=== PATIENT | female | born 1995 | race Caucasian/White ===

== ENCOUNTER 2022-04-28 09:03 | Emergency (ER) | payer OTHER, SELFPAY ==
[2022-04-28 09:10] VITALS: BP 140/99; PULSE 88; RESP 18; TEMP 36.9; O2SAT 98
--- NOTE | 2022-04-28 09:19 | ED.DENTAL ---
HPI - Dental/Oral General Chief complaint: Dental/Oral Stated complaint: Toothache Time Seen by Provider: 04/28/22 09:20 History of Present Illness HPI Narrative: NO FEVER. NO JAW SWELLING. NO NECK SWELLING. NO LIMITATION WITH SPEAKING OR SWALLOWING. HAS A HISTORY OF DENTAL CARIES. HAS NOT SEEN A DENTIST RECENTLY. Related Data Allergies Allergy/AdvReac Type Severity Reaction Status Date / Time amoxicillin Allergy Mild Rash Verified 04/28/22 09:19 Review of Systems Review of Systems: CONSTITUTIONAL: Denies fever, chills, or sweats. EYES: Denies visual changes, redness, or discharge. ENT: Denies rhinorrhea, congestion, sore throat, or otalgia. CONSTITUTIONAL: Denies fever, chills, or sweats. EYES: Denies visual changes, redness, or discharge. ENT: Denies rhinorrhea, congestion, sore throat, or otalgia. CARDIOVASCULAR: Denies chest pain, palpitations, or edema. RESPIRATORY: Denies cough or dyspnea. GASTROINTESTINAL: Denies abdominal pain, nausea, vomiting, or diarrhea. GENITOURINARY: Denies dysuria or hematuria. SKIN: Denies rash or itching. MUSCULOSKELETAL: Denies back pain, joint pain, or myalgia. NEUROLOGIC: Denies headache, numbness, or weakness. PSYCHIATRIC: Denies anxiety or depression. CARDIOVASCULAR: Denies chest pain, palpitations, or edema. RESPIRATORY: Denies cough or dyspnea. GASTROINTESTINAL: Denies abdominal pain, nausea, vomiting, or diarrhea. GENITOURINARY: Denies dysuria or hematuria. SKIN: Denies rash or itching. MUSCULOSKELETAL: Denies back pain, joint pain, or myalgia. NEUROLOGIC: Denies headache, numbness, or weakness. PSYCHIATRIC: Denies anxiety or depression. PMFSH Comments At time of signature, agree with nursing past medical, surgical, social and family history. There is no relevant family history pertinent to the presenting complaint Exam Narrative: GENERAL: Well-appearing, well-nourished, and in no acute distress. HEAD: Normocephalic, atraumatic. EYES: PERRLA and EOMI. ENT: Nares clear, no rhinorrhea or epistaxis. Mucous membranes moist. NO MARYELLEN APICAL SWELLING, TOOTH TENDER TO PALPATION. NO FACIAL SWELLING. NO TRISMUS. ABLE TO OPEN MOUTH FULLY. NO NECK SWELLING OR SAMEERA'S ANGINA. NO ABSCESS TO BE DRAINED. no drooling, trismus, facial asymmetry or significant neck swelling NECK: Supple. CHEST: Clear to auscultation. No respiratory distress. HEART: Regular rate and rhythm. No murmur heard. Normal peripheral pulses. ABDOMEN: Soft, nontender, nondistended, normal active bowel sounds. EXTREMITIES: Normal range of motion. No edema. SKIN: Warm, dry, no rash. NEURO: No focal deficits. Alert and oriented x3. Gerry Coma Scale Eye Opening: Spontaneous 4 Barnard Coma Scale Motor: Obeys Commands 6 Barnard Coma Scale Verbal: Oriented 5 Gerry Coma Scale Total 15 Course Course Level of Care: Express Care Visit Vital Signs Vital signs: Vital Signs Temperature 36.9 C 04/28/22 09:10 Pulse Rate 88 04/28/22 09:10 Respiratory Rate 18 04/28/22 09:10 Blood Pressure 140/99 H 04/28/22 09:10 Pulse Oximetry 98 04/28/22 09:10 Oxygen Delivery Room Air 04/28/22 09:10 Temperature 36.9 C 04/28/22 09:10 Pulse Rate 88 04/28/22 09:10 Respiratory Rate 18 04/28/22 09:10 Blood Pressure 140/99 H 04/28/22 09:10 Pulse Oximetry 98 04/28/22 09:10 Oxygen Delivery Room Air 04/28/22 09:10 Please LC schedule a followup visit with your personal physician for further evaluation and treatment. Including recheck and discussion of your blood pressure. If your symptoms persist, change or worsen significantly before you can contact your personal physician then please, without delay, go to the emergency department for further evaluation MDM - Dental/Oral Differential Diagnosis Differential diagnosis: Likely gingival abscess, dental caries, toothache, dental abscess, fracture of tooth and aphthous ulcer Discharge Plan Discharge Clinical Impression: Dental caries, Toothache, Dental
== END 2022-04-28 09:30 | disposition home or self-care (01) ==
PROVIDERS: Emergency Provider Nurse Practitioner Family; PCP Nurse Practitioner Family
DX: K02.9 Dental caries, unspecified (principal); K08.89 Other specified disorders of teeth and supporting structures; K04.7 Periapical abscess without sinus
CPT/HCPCS: 99213; G0463

== ENCOUNTER 2022-05-31 08:12 | Emergency (ER) | payer OTHER, SELFPAY ==
--- NOTE | 2022-05-31 08:16 | ED.URI ---
HPI - URI/Sore Throat General Chief Complaint: Upper Respiratory Infection Stated Complaint: congestion sore throat Time Seen by Provider: 05/31/22 08:30 Source: patient Mode of arrival: ambulatory Limitations: no limitations History of Present Illness HPI Narrative: Maryam is a 26-year-old female patient presenting to the clinic today with complaints of congestion and sore throat since last night. She reports her son is currently being treated for strep pharyngitis. She denies any fever or chills. MD elicited complaint: sore throat and nasal congestion Related Data Home Medications Medication Instructions Recorded Confirmed levonorgestrel 21 mcg/24 hours (8 1 device intrauterine ONCE 05/31/22 05/31/22 yrs) 52 mg intrauterine device (Mirena) Allergies Allergy/AdvReac Type Severity Reaction Status Date / Time amoxicillin Allergy Mild Rash Verified 05/31/22 08:31 Review of Systems Review of Systems: Pertinent positives per HPI. Patient denies any fever, chills, rash, headache, visual changes, dizziness, shortness of breath, chest pain, palpitations, nausea, vomiting, diarrhea, constipation, abdominal pain, or any urinary issues. PMFSH Comments At the time of my signature, I reviewed and agree with the nursing past medical, surgical, social, and family history. There is no relevant family history pertinent to the patient complaint. Exam Narrative: General: Well-developed, well nourished, in no apparent distress Head: Normocephalic, atraumatic Eyes: Pupils equally round and reactive to light bilaterally, EOM intact, sclera and conjunctive clear, no discharge, lids normal Ears: TMs intact and dull, ear canals clear, no drainage, grossly hearing normal. Nose: Nares patent, clear nasal discharge, moderate inflammation, no sinus tenderness. Mouth: Oral pharynx without lesions or masses, good dentition, MMM. Oropharynx red, postnasal drip Neck: Supple, trachea midline, mild enlargement of anterior cervical nodes, no thyroid masses or goiter palpable. Cardio: Regular rate and rhythm, s1 and s2 normal, no murmur appreciated. Resp: Clear to auscultation bilaterally, no rhonchi, rales, wheezing or rubs Course Course Emergency Course: Portions of this record may have been created with voice recognition software. Level of Care: Express Care Visit Vital Signs Vital signs: Vital Signs Temperature 36.8 C 05/31/22 08:25 Pulse Rate 80 05/31/22 08:25 Respiratory Rate 16 05/31/22 08:25 Blood Pressure 133/87 05/31/22 08:25 Pulse Oximetry 99 05/31/22 08:25 Oxygen Delivery Room Air 05/31/22 08:25 Temperature 36.8 C 05/31/22 08:25 Pulse Rate 80 05/31/22 08:25 Respiratory Rate 16 05/31/22 08:25 Blood Pressure 133/87 05/31/22 08:25 Pulse Oximetry 99 05/31/22 08:25 Oxygen Delivery Room Air 05/31/22 08:25 Vital signs reviewed MDM - URI/Sore Throat MDM Narrative Medical decision making narrative: At the time of visit patient is resting comfortably on the exam table. Strep test was negative in the clinic today. I suspect patient has URI/pharyngitis/viral syndrome. Supportive measures were discussed with the patient she voiced understanding discharge instructions and agrees to treatment plan. We will send strep for culture Differential Diagnosis Differential diagnosis: Likely upper respiratory infection, otitis media, sinusitis, viral infection, bronchitis, influenza, pharyngitis and other (COVID) Lab Data Labs: Strep Screen Presumptive Negative *(Reference Range: Negative)* Discharge Plan Discharge Clinical Impression: Upper respiratory infection, Pharyngitis, Viral infection Patient Disposition: Home, Self-Care Condition: Stable Instructions: Antibiotic Form, Pharyngitis (ED), Upper Respiratory Infection (ED), Viral Syndrome (ED) Additional Instructions: Strep screen was negative in the cli
[2022-05-31 08:25] VITALS: BP 133/87; PULSE 80; RESP 16; TEMP 36.8; O2SAT 99
== END 2022-05-31 08:45 | disposition home or self-care (01) ==
PROVIDERS: Emergency Provider Nurse Practitioner Family; PCP Nurse Practitioner Family
DX: J02.8 Acute pharyngitis due to other specified organisms (principal)
CPT/HCPCS: 87081; 87880; 99213; G0463

== ENCOUNTER 2022-08-01 10:06 | Emergency (ER) | payer OTHER, SELFPAY ==
--- NOTE | 2022-08-01 10:14 | ED.NAVMDI ---
HPI - Nausea/Vomiting/Diarrhea General Chief complaint: Nausea/Vomiting/Diarrhea Stated complaint: nausea/vomiting Time Seen by Provider: 08/01/22 10:14 Source: patient and RN notes reviewed History of Present Illness HPI Narrative: Patient is a 26-year-old female who presents to urgent care with complaints of 1 episode of vomiting this morning at 9:00 a.m. and 1 episode of loose stools. Mother states her son at started vomiting last night around 4:00 a.m. and has vomited approximately 5 or 6 times since then. States that her last meal was [employer] last night. Denies any fevers. Patient has not taken anything [id number] for her symptoms. Currently denies any abdominal discomfort at rest. No acute distress noted. Patient aware of the plan of care. Some parts of this dictation were generated by voice recognition software and may contain typographical and/or grammatical inaccuracies. Related Data Home Medications Medication Instructions Recorded Confirmed levonorgestrel 21 mcg/24 hours (8 1 device intrauterine ONCE 05/31/22 05/31/22 yrs) 52 mg intrauterine device (Mirena) Allergies Allergy/AdvReac Type Severity Reaction Status Date / Time amoxicillin Allergy Mild Rash Verified 05/31/22 08:31 Review of Systems Review of Systems: CONSTITUTIONAL: Denies fever, chills, or sweats. EYES: Denies visual changes, redness, or discharge. ENT: Denies rhinorrhea, congestion, sore throat, or otalgia. CARDIOVASCULAR: Denies chest pain, palpitations, or edema. RESPIRATORY: Denies cough or dyspnea. GASTROINTESTINAL: Reports of nausea, vomiting and 1 loose stool GENITOURINARY: Denies dysuria or hematuria. SKIN: Denies rash or itching. MUSCULOSKELETAL: Denies back pain, joint pain, or myalgia. NEUROLOGIC: Denies headache, numbness, or weakness. All other systems reviewed are negative, except as documented in HPI. PMFSH Comments At the time of my signature, I reviewed and agree with the nursing past medical, surgical, social, and family history. There is no relevant family history pertinent to the patient complaint. Exam Narrative: GENERAL: This is a well-nourished, well-developed patient, in no apparent distress. HEAD: normocephalic, atraumatic. EYES: PERRL. Sclera clear/white. Vision is grossly intact. EARS: External ears normal NOSE: External nose normal with no obvious nasal discharge, nares without redness, no rhinorrhea. THROAT: Mucous membranes moist NECK: Neck supple, RESPIRATORY: Clear to auscultation. Breath sounds equal bilaterally. No wheezes, rales, or rhonchi. GASTROINTESTINAL: Abdomen soft, mild diffuse tenderness, nondistended. Bowel sounds are hyper active. SKIN: warm, intact with no suspicious lesions or rash, good texture and turgor. NEURO: awake, alert, and oriented to person, place and time. There were no obvious focal neurologic abnormalities. EXTREMITIES: No clubbing, cyanosis, or edema. Course Course Level of Care: Express Care Visit Vital Signs Vital signs: Vital Signs Temperature 98.4 F 08/01/22 10:16 Pulse Rate 97 08/01/22 10:16 Respiratory Rate 20 08/01/22 10:16 Blood Pressure 111/69 08/01/22 10:16 Pulse Oximetry 100 08/01/22 10:16 Oxygen Delivery Room Air 08/01/22 10:16 Temperature 98.4 F 08/01/22 10:16 Pulse Rate 97 08/01/22 10:16 Respiratory Rate 20 08/01/22 10:16 Blood Pressure 111/69 08/01/22 10:16 Pulse Oximetry 100 08/01/22 10:16 Oxygen Delivery Room Air 08/01/22 10:16 Reviewed MDM - Nausea/Vomiting/Diarrhea MDM Narrative Medical decision making narrative: Advised patient to use the Zofran as needed for nausea. Be sure to increase fluid intake to compact dehydration. You may use Pepto-Bismol [id number] for upset stomach/diarrhea. Symptoms are it highly likely to a virus. It may travel throughout the home. Be sure to clean it surfaces and practice good hand hygiene. Symptoms can last for 3-5 days. Follow-up with your Gabriela
[2022-08-01 10:16] VITALS: BP 111/69; PULSE 97; RESP 20; TEMP 36.9; O2SAT 100
== END 2022-08-01 10:52 | disposition home or self-care (01) ==
PROVIDERS: Emergency Provider Nurse Practitioner Family; PCP Nurse Practitioner Family
DX: A08.11 Acute gastroenteropathy due to Norwalk agent (principal)
CPT/HCPCS: 99213; G0463

== ENCOUNTER 2022-10-27 17:46 | Emergency (ER) | payer OTHER, SELFPAY ==
[2022-10-27 17:54] VITALS: BP 145/98; PULSE 79; RESP 16; TEMP 36.7; O2SAT 100
--- NOTE | 2022-10-27 18:41 | ED.GENADULT ---
HPI - General Adult General Chief complaint: Dental/Oral Stated complaint: Toothache Source: patient Mode of arrival: ambulatory Limitations: no limitations History of Present Illness HPI narrative: Patient presents for evaluation of right upper dental pain. Symptom onset approximately 2 weeks ago with pain worsened last night. She rates her pain 8/10 in severity. She describes the pain is throbbing without radiation. She has been taking Tylenol and ibuprofen for pain without considerable improvement thereafter. No fever, chills, nausea, vomiting. She is not diabetic. She does use an electronic cigarette. Related Data Allergies Allergy/AdvReac Type Severity Reaction Status Date / Time amoxicillin Allergy Mild Rash Verified 10/27/22 17:59 Review of Systems Review of Systems: CONSTITUTIONAL: Denies fever, chills, or sweats. EYES: Denies visual changes, redness, or discharge. ENT: Reports right upper dental pain. Denies rhinorrhea, congestion, sore throat, or otalgia. CARDIOVASCULAR: Denies chest pain, palpitations, or edema. RESPIRATORY: Denies cough or dyspnea. GASTROINTESTINAL: Denies abdominal pain, nausea, vomiting, or diarrhea. GENITOURINARY: Denies dysuria or hematuria. SKIN: Denies rash or itching. MUSCULOSKELETAL: Denies back pain, joint pain, or myalgia. NEUROLOGIC: Denies headache, numbness, dizziness, or weakness. PSYCHIATRIC: Denies anxiety or depression. [facility] Past Medical History Medical History Tooth fracture Surgical History Surgical History History of knee surgery Family History Family History Mother Family history non-contributory Social History Social History (Updated 10/27/22 @ 18:43 by Alexander Vazquez [facility], ) Smoking status: Current every day smoker Tobacco type: e-cigarettes/vaping Living arrangements: with family Gender identity (if verbalized by the patient): Female Spiritual care concerns: No Exam Narrative: GENERAL: Well-appearing, well-nourished, and in no acute distress. HEAD: Normocephalic, atraumatic. EYES: PERRLA and EOMI. ENT: Nares clear, no rhinorrhea or epistaxis. Mucous membranes moist. Tooth #2 and tooth #3 are fractured. There is no visible or palpable abscess. Oropharynx without tonsillar hypertrophy exudate or other lesions. Bilateral TMs pearly hernandez nonbulging NECK: Supple. No adenopathy or masses. No carotid bruits or JVD CHEST: Clear to auscultation. No respiratory distress. No wheezes rales or rhonchi HEART: Regular rate and rhythm. No murmur heard. Normal peripheral pulses. ABDOMEN: Soft, nontender, nondistended, normal active bowel sounds. EXTREMITIES: Normal range of motion. No edema. SKIN: Warm, dry, no rash. NEURO: No focal deficits. Alert and oriented x3. PSYCH: Normal mood and affect. Course Course Emergency Course: This is a 27-year-old female who presented for evaluation of right upper dental pain. She has several fractured teeth without a visible or palpable abscess. Will discharge with clindamcyin and tramadol. Follow up with dentist and PCP. Go to ER for worsening symptoms. Pt in agreement with plan of care. Level of Care: Express Care Visit Vital Signs Vital signs: Vital Signs Temperature 36.7 C 10/27/22 17:54 Pulse Rate 79 10/27/22 17:54 Respiratory Rate 16 10/27/22 17:54 Blood Pressure 145/98 H 10/27/22 17:54 Pulse Oximetry 100 10/27/22 17:54 Oxygen Delivery Room Air 10/27/22 17:54 Temperature 36.7 C 10/27/22 17:54 Pulse Rate 79 10/27/22 17:54 Respiratory Rate 16 10/27/22 17:54 Blood Pressure 145/98 H 10/27/22 17:54 Pulse Oximetry 100 10/27/22 17:54 Oxygen Delivery Room Air 10/27/22 17:54 Medical Decision Making Vital Signs Vital Signs: Vital Signs Temperature 36.7 C
== END 2022-10-27 18:10 | disposition home or self-care (01) ==
PROVIDERS: Emergency Provider Nurse Practitioner; PCP Nurse Practitioner Family
DX: S02.5XXA Fracture of tooth (traumatic), initial encounter for closed fracture (principal); X58.XXXA Exposure to other specified factors, initial encounter; F17.290 Nicotine dependence, other tobacco product, uncomplicated
CPT/HCPCS: 99213; G0463

== ENCOUNTER 2022-12-27 10:21 | Emergency (ER) | payer OTHER, SELFPAY ==
[2022-12-27 10:30] VITALS: BP 135/83; PULSE 92; RESP 18; TEMP 36.6; O2SAT 98
--- NOTE | 2022-12-27 11:15 | ED.GENADULT ---
HPI - General Adult General Chief complaint: Nausea/Vomiting/Diarrhea Stated complaint: Fever/Vomiting Time Seen by Provider: 12/27/22 11:16 Source: patient, RN notes reviewed and old records reviewed Mode of arrival: ambulatory Limitations: no limitations History of Present Illness HPI narrative: 27-year-old female accompanied by children presents to Express Care with complaints of nausea and vomiting X3, having headache during the night with temperature at 4:30 a.m. of 101F. Patient reports that she took Tylenol for her discomfort. Patient reports that she has not had flu or COVID vaccinations and she works at daycare. Patient reports that she is unsure if she has been exposed to any ill contacts.Patient reports that she called off work and needs work note. MD complaint: headache, nausea and vomiting Onset (ago): day(s) (1) Treatments prior to arrival: other (Tylenol) Related Data Allergies Allergy/AdvReac Type Severity Reaction Status Date / Time amoxicillin Allergy Mild Rash Verified 12/27/22 10:40 Review of Systems Review of Systems: CONSTITUTIONAL: Reports fever, no chills, or sweats. EYES: Denies visual changes, redness, or discharge. ENT: Denies rhinorrhea, congestion, denies sore throat, or otalgia. CARDIOVASCULAR: Denies chest pain, palpitations, or edema. RESPIRATORY: Denies cough or dyspnea. GASTROINTESTINAL: Denies abdominal pain,positive for nausea, vomiting, no diarrhea. GENITOURINARY: Denies dysuria or hematuria. SKIN: Denies rash or itching. MUSCULOSKELETAL: Denies back pain, joint pain, or myalgia. NEUROLOGIC: Reports headache,no numbness, or weakness. PSYCHIATRIC: Denies anxiety or depression. All systems reviewed & are unremarkable except as noted in HPI and below [facility] Past Medical History Medical History Tooth fracture Surgical History Surgical History History of knee surgery Family History Family History Mother Family history non-contributory Social History Social History (Updated 10/27/22 @ 18:43 by JODI Castrejon, SHARI) Smoking status: Current every day smoker Tobacco type: e-cigarettes/vaping Living arrangements: with family Gender identity (if verbalized by the patient): Female Spiritual care concerns: No Comments At time of signature, agree with nursing past medical, surgical, social and family history. There is no relevant family history pertinent to the presenting complaint Exam Narrative: GENERAL: Well-appearing, well-nourished, and in no acute distress. HEAD: Normocephalic, atraumatic. EYES: PERRLA and EOMI. ENT: Nares clear, no rhinorrhea or epistaxis. Mucous membranes moist.TM's normal, throat pink with no swelling NECK: Supple.no lymphadenopathy CHEST: Clear to auscultation. No respiratory distress.SAO2 98% on room air HEART: Regular rate and rhythm. No murmur heard. Normal peripheral pulses. ABDOMEN: Soft, nontender to palpation, nondistended, normal active bowel sounds. 3 episodes of nausea and vomiting EXTREMITIES: Normal range of motion. No edema. SKIN: Warm, dry, no rash. NEURO: No focal deficits. Alert and oriented x3. Course Course Emergency Course: Patient is aware of diagnosis, understands and agrees to treatment plan.? Anticipatory guidance given.? Patient agrees to follow-up as directed and is aware of reasons to seek care at the emergency department. Portions of this record may have been created with voice recognition software Level of Care: Express Care Visit Vital Signs Vital signs: Vital Signs Temperature 36.6 C 12/27/22 10:30 Pulse Rate 92 12/27/22 10:30 Respiratory Rate 18 12/27/22 10:30 Blood Pressure 135/83 12/27/22 10:30 Pulse Oximetry 98 12/27/22 10:30 Oxygen Delivery Room Air 12/27/22 10:30 Temperature 36.6 C
== END 2022-12-27 11:55 | disposition home or self-care (01) ==
PROVIDERS: Emergency Provider Registered Nurse; PCP Nurse Practitioner Family
DX: R11.2 Nausea with vomiting, unspecified (principal); R51.9 Headache, unspecified; Z20.822 Contact with and (suspected) exposure to COVID-19; F17.290 Nicotine dependence, other tobacco product, uncomplicated
CPT/HCPCS: 87426; 87804; 99213; C9803; G0463

== ENCOUNTER 2023-01-08 15:00 | Emergency (ER) | payer OTHER, SELFPAY ==
[2023-01-08 15:05] VITALS: BP 154/84; PULSE 80; RESP 16; TEMP 36.9; O2SAT 99
--- NOTE | 2023-01-08 15:11 | ED.URI ---
HPI - URI/Sore Throat General Chief Complaint: Upper Respiratory Infection Stated Complaint: Headache/Cough/Sore Throat Time Seen by Provider: 01/08/23 15:12 Source: patient and RN notes reviewed Mode of arrival: ambulatory Limitations: no limitations History of Present Illness HPI Narrative: 27-year-old female presents with concern for cough, nasal congestion, mild sore throat, headache. She reports exposure to COVID 2 days ago. Reports his symptoms started 2 days ago. Reports she works at a daycare. Reports she has been taking Tylenol. MD elicited complaint: cough Related Data Allergies Allergy/AdvReac Type Severity Reaction Status Date / Time amoxicillin Allergy Mild Rash Verified 01/08/23 15:16 Review of Systems Review of Systems: CONSTITUTIONAL: Denies malaise, chills, sweats, or fever. EYES: Denies visual changes, redness, or discharge. ENT: Reports rhinorrhea, congestion, mild sore throat. Denies sinus pain, otalgia CARDIOVASCULAR: Denies chest pain, palpitations, or edema. RESPIRATORY: Reports cough. Denies dyspnea. GASTROINTESTINAL: Denies abdominal pain, nausea, vomiting, diarrhea SKIN: Denies rash or itching. MUSCULOSKELETAL: Denies myalgia. NEUROLOGIC: Reports headache. All systems reviewed & are unremarkable except as noted in HPI and below PMFSH Past Medical History Medical History Tooth fracture Surgical History Surgical History History of knee surgery Family History Family History Mother Family history non-contributory Social History Social History (Updated 10/27/22 @ 18:43 by DANN CatsrejonP, ) Smoking status: Current every day smoker Tobacco type: e-cigarettes/vaping Living arrangements: with family Gender identity (if verbalized by the patient): Female Spiritual care concerns: No Comments At time of signature, agree with nursing past medical, surgical, social and family history. There is no relevant family history pertinent to the presenting complaint Exam Narrative: GENERAL: Well-appearing, well-nourished, and in no acute distress. HEAD: Normocephalic EYES: PERRLA, conjunctivae clear ENT: Nares clear, turbinates edematous and erythematous, clear discharge. Mucous membranes moist. TM pearly hernandez with dull light reflex bilaterally; no tragal tenderness. Oropharynx not erythematous without lesions. Tonsils not enlarged and without exudate, no drooling, no hoarseness, no trismus, uvula midline. NECK: Supple. No lymphadenopathy CHEST: Clear to auscultation, breath sounds equal. No wheezing, rhonchi, rales, or stridor. No respiratory distress, speaks in full sentences. HEART: Regular rate and rhythm. No murmur heard. SKIN: Warm, dry, no rash. NEURO: Alert and oriented x3. PSYCH: Normal mood and affect Course Course Emergency Course: Patient is aware of diagnosis, understands and agrees to treatment plan. Anticipatory guidance given. Patient agrees to follow-up as directed and is aware of reasons to seek care at the emergency department. Portions of this record may have been created with voice recognition software Level of Care: Express Care Visit Vital Signs Vital signs: Vital Signs Temperature 98.4 F 01/08/23 15:05 Pulse Rate 80 01/08/23 15:05 Respiratory Rate 16 01/08/23 15:05 Blood Pressure 154/84 H 01/08/23 15:05 Pulse Oximetry 99 01/08/23 15:05 Oxygen Delivery Room Air 01/08/23 15:05 Temperature 98.4 F 01/08/23 15:05 Pulse Rate 80 01/08/23 15:05 Respiratory Rate 16 01/08/23 15:05 Blood Pressure 154/84 H 01/08/23 15:05 Pulse Oximetry 99 01/08/23 15:05 Oxygen Delivery Room Air 01/08/23 15:05 Reviewed. MDM - URI/Sore Throat MDM Narrative Medical decision making narrative: Differential diagnosis considered: Worrell viru
== END 2023-01-08 15:35 | disposition home or self-care (01) ==
PROVIDERS: Emergency Provider Nurse Practitioner; PCP Nurse Practitioner Family
DX: J06.9 Acute upper respiratory infection, unspecified (principal); Z20.822 Contact with and (suspected) exposure to COVID-19; F17.290 Nicotine dependence, other tobacco product, uncomplicated
CPT/HCPCS: 87081; 87426; 87880; 99213; C9803; G0463

== ENCOUNTER 2025-03-26 08:58 | Emergency (ER) | payer OTHER, SELFPAY ==
[2025-03-26 09:00] VITALS: BP 145/88; PULSE 84; RESP 16; TEMP 36.3; O2SAT 99
--- OUTSIDE RECORDS SUMMARY | 2025-03-26 09:04 | XMS_ITS | Encounter Summary ---
Author Organization [facility] Address [address] [place] [address] Phone Care Team Providers Care Car Dispatcher Name Role Phone Keating, Kateherson VILLELA CNP Primary Care Provider [phone] Encounter Details Date Type Department Care Team (Late st Contact Info) Description 06/18/2023 Lab Requisition [facility] [address] [place] [id number] Vadim Winslow, PAC [address] [place] [address] Encounter for pre-employment examination Social History Tobacco Use Types Packs/Day Years Used Date Smoking Tobacco: Former Cigarettes 0 Q uit: 2020 Smokeless Tobacco: Never Comments No Sex and Gender Information Value Date Recorded Sex Assigned at Not on file Legal Sex Female 9:14 PM CDT Gender Identity Not on file Sexual Orientation Not on file documented as of this encounter Plan of Treatment Not on file documented as of this encounter Procedures Procedure Name Priority Date/Time Associated Diagnosis Comments QUANTIFERON-TB GOLD PLUS Routine 06/18/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 Encounter for pre-employment examination documented in this encounter Results * QUANTIFERON-TB GOLD PLUS (06/18/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) NIL CONTROL 0.07 <8.01 IU/mL 06/20/2023 10:55 AM [facility] TB ANTIGEN 1 0.01 <0.35 IU/mL 06/20/2023 10:55 AM [facility] TB ANTIGEN 2 0.00 <0.35 IU/mL 06/20/2023 10:55 AM [facility] MITOGEN CONTROL 9.93 >0.49 IU/mL 06/20/19 10:55 AM [facility] INTEPRETATION TB NEGATIVE NEGATIVE, NEGATIVE (TB antigen response less than 25% of internal negative control value) 06/20/2023 10:55 AM [facility] Comment:No immune response t o Mycobacterium tuberculosis antigens was noted. M. tuberculosis infection unlikely. Blood No Phlebotomy Charged / Unknown 06/18/2023 10:10 AM [facility] 06/18/2023 12:08 PM [facility] Narrative [facility] - 06/20/2023 10:55 AM [facility] A POSITIVE QUANTIFERON-TB GOLD PLUS RESULT SHOULD NOT BE THE SOLE OR DEFINITIVE BASIS FOR DETERMINING INFECTION WITH M.TUBERCULOSIS. Diagnosing or excluding tuberculosis disease, and assessing the probability of LTBI, requires a combination of epidemiological, historical, medical and diagnostic findings (e.g., acid fast bacilli (AFB) smear and culture, chest xray) that should be taken into account when interpreting QFT-Plus results. Furthermore, the magnitude of the measured gamma interferon level cannot be correlated to stage or degree of infection, level of immune responsiveness, or likelihood for progression to active disease. The Nil control adjusts for background (e.g., elevated levels of circulating gamma interferon or presence of heterophile antibodies). The Mitogen control serves as an internal positive control and verifies each specimen tested can produce a gamma interferon response. Low mitogen may occur with insufficient lymphocytes, reduced lymphocyte activity due to improper specimen handling, filling/mixing of the mitogen tube, or inability of the patient's lymphocytes to generate gamma interferon. Infection with other Mycobacteria, including M. kansasii, M. szulgai, and M. marinum, may cause false positive results. A negative QuantiFERON-TB Gold Plus result does not preclude the possibility of M. tuberculosis infection or tuberculosis disease: false negative results can be due to incorrect blood sample collection/ improper handling of the specimen, stage of infection (e.g., specimen obtained prior to the development of cellular immune response), co-morbid conditions which affect immune function, or other individual immunological factors. The minimum number of lymphocytes required for a reliable test has not been established and may also be variable. Diagnostic testing for Mycobacterium tuberculosis using Interferon Gamma Release Assays should follow applicable published guidelines, including when testing in populations such as children, women, and HIV-infected or otherwise immunocompromised individuals. https://www.cdc.gov/tb/publications/guidelines/testing.htm us Vadim Winslow PAC IMMUNOLOGY ORDERABLES Final Result [facility] [address] [place] [address], documented in this encounter Visit Diagnoses Diagnosis Encounter for pre-employment examination Health examination of defined subpopulation documented in this encounter Care Teams Car Dispatcher Relationship Specialty Start Date End Date Kate Keating APRN, CNP PCP - General Family Medicine 01/04/21 documented as of this encounter
--- OUTSIDE RECORDS SUMMARY | 2025-03-26 09:04 | XMS_ITS | Clinical Summary ---
Author Organization [facility] Address [address] [place] [address] Care Team Providers Care Linotype Mechanic Name Role Phone Adrien Tenorio MD Unavailable [phone] Kate Keating NP Primary Care Provider + [phone] Allergies Active Allergy Reactions Criticality Noted Date Comments Amoxicillin Rash Medium 04/22/2020 Medications acetaminophen (TYLENOL) 500 mg tablet Take 500 mg by mouth every 6 (six) hours as needed for pain Active naproxen (NAPROSYN) 375 mg tablet Take 1 tablet (375 mg total) by mouth 2 (two) times a day with meals P.r.n. pain and swelling. Collaborating physician Sunny Gould MD 20 tablet 1 Active ibuprofen (ADVIL,MOTRIN) 600 mg tablet Take 1 tablet (600 mg total) by mouth 4 (four) times a day as needed for pain With food 15 tablet 2 Active Active Problems Problem Noted Date Diagnosed Date Sprain of left knee 12/21/2020 Right corneal abrasion 06/18/2019 Acute conjunctivitis of right eye 06/18/2019 Normal pelvic exam 02/06/2019 Vaginal foreign body, initial encounter 02/07/20 19 Encounter to obtain excuse from work 11/30/2018 Closed nondisplaced fracture of fifth right meta tarsal bone 11/25/2018 Paronychia of left index finger 09/07/2018 Immunizations Immunization Administration Dates Next Due Influenza, Quadrivalent, Spl it, Preservative Free, Intramuscular 06/10/2018 Tdap 06/10/2018,08/29/2014 Surgical History Surgery Date Site/Laterality Comments TONSILLECTOMY AND ADENOIDECTOMY Medical History Medical History Date Comments Herpes HSV1 Abnormal Pap smear of cervix Social History Tobacco Use Types Packs/Day Years Used Date Smoking Tobacco: Former Cigarettes Smokeless Tobacco: Never Alcohol Use Standard Drinks/Week Comments Not Currently 0 (1 standard drink = 0.6 oz pure alcohol) pt states she drinks a pint or two daily Personal Safety Answer Date Recorded Have you ever been in or are you currently in a harmful physical or emotional relationship or is someone making you feel afraid or unsafe? 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 Last Filed Vital Signs Vital Sign Reading Time Taken Comments Blood Pressure 140/93 10/03/2023 8:56 AM CDT Pulse 94 10/03/2023 8:56 AM CDT Temperature 36.7 C (98 F) 10/03/2023 8:56 AM CDT Respiratory Rate 15 10/03/2023 8:56 AM CDT Oxygen Saturation 99% 10/03/2023 8:56 AM CDT Inhaled Oxygen Concentration - - Weight 72.6 kg (160 lb) 10/03/2023 8:56 AM CDT Height 170.2 cm (5' 7) 10/03/2023 8:56 AM CDT Body Mass Index 25.06 10/03/2023 8:56 AM CDT Plan of Treatment Health Maintenance Due Date Last Done Comments Cervical Cancer Screening 1996 Depression Screening 1996 Hepatitis C Screening 1996 Varicella Vaccines (1 of 2 - 13+ 2-dose series) 2009 Regular Well Visit/Exam 18-64 2014 HPV Vaccines (1 - 3-dose SCDM series) 09/17/2023 Influenza Vaccine (#1) 2024 06/10/2018 DTaP/Tdap/Td Vaccine (8 - Td or Tdap) 06/10/2028 06/10/2018, 08/29/2014, 02/02/2011, Additional history exists Hepatitis B Screening Completed 04/07/1997 , 1996, 1996 Pneumococcal vaccine <65 Aged Out No longer eligible based on patient's age to complete this topic Insurance [facility] [employer] BETTER [facility] Advance Directives For more information, please contact: [phone] * Full Code (Latest Code Status on File) Date Activated Date Inactivated Comments 06/08/2018 7:21 PM 06/10/2018 11:37 PM * Full Code Date Activated Date Inactivated Comments 06/08/2018 7:02 AM 06/08/2018 7:21 PM Full CPR in case of cardiopulmonary arrest Care Teams Linotype Mechanic Relationship Specialty Start Date End Date Kate Keating NP [address] [place] [address] [place] [id number] PCP - General 09/24/19 Adrien Tenorio MD Consulting Physician Obstetrics and Gynecology 06/10/19
--- OUTSIDE RECORDS SUMMARY | 2025-03-26 09:04 | XMS_ITS | Clinical Summary ---
Author Organization [facility] Address [address] [place] [address] Phone Care Team Providers Care Rubber Stamps And Dies Supervisor Name Role Phone Keating, Kateherson VILLELA CNP Primary Care Provider [phone] Allergies Active Allergy Reactions Criticality Noted Date Comments Amoxicillin Rash Medium 08/09/2021 Medications MULTIPLE VITAMIN PO Take 1 Tablet by mouth daily. Active HYDROcodone-claudia taminophen (NORCO) 5-325 MG TabletIndicatio ns:Dental caries Take 1 Tablet by mouth every 6 hours as needed for Moderate or more severe pain. 10 Tablet 07/30/2023 Active traMADol (ULTRAM) 50 MG TabletIndicatio ns:Dental infection Take 1 Tablet by mouth every 6 hours as needed for Mild or more severe pain. 12 Tablet 09/07/2024 Active Active Problems No known active problems Family History Medical History Relation Name Comments Chronic Obstructive Pulmonary Disease Father Heart Attack Mother Relation Name Status Comments Father Mother Alive Social History Tobacco Use Types Packs/Day Years Used Date Smoking Tobacco: Former Cigarettes 0 Q uit: 2020 Smokeless Tobacco: Never Comments Unknown Sex and Gender Information Value Date Recorded Sex Assigned at Not on file Legal Sex Female 9:14 PM CDT Gender Identity Not on file Sexual Orientation Not on file Last Filed Vital Signs Vital Sign Reading Time Taken Comments Blood Pressure 151/91 09/07/2024 4:33 PM CDT Pulse 72 09/07/2024 4:33 PM CDT Temperature 36.4 C (97.6 F) 09/07/2024 4:33 PM CDT Respiratory Rate 16 09/07/2024 4:33 PM CDT Oxygen Saturation 100% 09/07/2024 4:33 PM CDT Inhaled Oxygen Concentration - - Weight 77.1 kg (170 lb) 09/07/2024 4:33 PM CDT Height 170.2 cm (5' 7) 09/07/2024 4:33 PM CDT Body Mass Index 26.63 09/07/2024 4:33 PM CDT Plan of Treatment Health Maintenance Due Date Last Done Comments Hepatitis C Virus (HCV) Screening 1996 Varicella Immunization (1 of 2 - 13+ 2-dose series) 2009 Pap Smear 2017 Human Papillomavirus (HPV) Immunization (1 - 3-dose SCDM series) 09/17/2023 Influenza Immunization (#1) 2024 06/10/2018 SARS-COV-2 Immunization (2 - season) 2024 06/17/2023 Respiratory Syncytial Virus (RSV) Immunization (Adult) (1 - 1-dose 75+ series) 09/17/2071 Hepatitis B Immunization Completed 997, 1996, 1996 DTaP/Tdap/Td Immunization Discontinued 2018, 08/29/2014, 02/02/2011, Additional history exists TdaP Immunization Completed 06/10/2018, , 02/02/2011 Meningococcal Immunization (ACWY) Aged Out No longer eligible based on patient's age to complete this topic Pneumococcal Immunization Combined Aged Out No longer eligible based on patient's age to complete this topic Rotavirus Immunization Aged Out No lo nger eligible based on patient's age to complete this topic Care Teams Rubber Stamps And Dies Supervisor Relationship Specialty Start Date End Date Kate Keating APRN, JACKIE PCP - General Family Medicine 01/04/21
--- NOTE | 2025-03-26 09:24 | ED.SKABFB ---
HPI - Skin/Abscess/Foreign Bdy General Chief complaint: Skin/Abscess/Foreign Body Stated complaint: Skin Sore/Nose Time Seen by Provider: 03/26/25 09:24 Source: patient Mode of arrival: ambulatory Limitations: no limitations History of Present Illness HPI narrative: 29 yo F presents with c/o runny nose for 2 to 3 days. Noticed redness, soreness and swelling to L nare yesterday. All systems reviewed and negative except as noted above. Related Data Allergies Allergy/AdvReac Type Severity Reaction Status Date / Time amoxicillin Allergy Mild Rash Verified 03/26/25 09:05 [facility] Past Medical History Medical History Tooth fracture Surgical History Surgical History History of knee surgery Family History Family History Mother Family history non-contributory Social History Social History (Updated 10/27/22 @ 18:43 by Alexander Vazquez, MANOHAR, JODI) Smoking status: Current every day smoker Tobacco type: e-cigarettes/vaping Living arrangements: with family Gender identity (if verbalized by the patient): Female Spiritual care concerns: No Comments At time of signature, agree with nursing past medical, surgical, social and family history. There is no relevant family history pertinent to the presenting complaint. Exam Narrative: GENERAL: This is a well-nourished, well-developed patient, in no apparent distress. HEAD: normocephalic, atraumatic. EYES: PERRL. Sclera clear/white. Vision is grossly intact. EARS: External ears normal, auditory canals clear and without drainage, TMs normal without perforation. Hearing grossly intact. NOSE: External nose normal, erythema with mild swelling to bilateral nares, swelling, crusty drainage, erythema to L nare. no fluctuance concerning for abscess., no rhinorrhea. NECK: Neck supple, non-tender without lymphadenopathy, masses or thyromegaly. CARDIOVASCULAR: Regular rate and rhythm without murmurs, gallops, or rubs. RESPIRATORY: Clear to auscultation. Breath sounds equal bilaterally. No wheezes, rales, or rhonchi. SKIN: warm, Dry, intact with no suspicious lesions or rash, good texture and turgor. NEURO: awake, alert, and oriented to person, place and time. There were no obvious focal neurologic abnormalities. EXTREMITIES: No joint tenderness, effusion, or edema noted. Course Course Level of Care: Express Care Visit Vital Signs Vital signs: Vital Signs Temperature 36.3 C L 03/26/25 09:00 Pulse Rate 84 03/26/25 09:00 Respiratory Rate 16 03/26/25 09:00 Blood Pressure 145/88 H 03/26/25 09:00 Pulse Oximetry 99 03/26/25 09:00 Oxygen Delivery Room Air 03/26/25 09:00 Temperature 36.3 C L 03/26/25 09:00 Pulse Rate 84 03/26/25 09:00 Respiratory Rate 16 03/26/25 09:00 Blood Pressure 145/88 H 03/26/25 09:00 Pulse Oximetry 99 03/26/25 09:00 Oxygen Delivery Room Air 03/26/25 09:00 reviewed MDM MDM Narrative Medical decision making narrative: will treat impetigo with oral abx and abx ointment. pt agrees with plan of care. Differential Diagnosis Differential Diagnosis: Differential diagnostic considerations for skin/abscess/foreign body issues include abscess of skin or subcutaneous tissue, viral exanthem, dermatophytosis, urticaria, herpes zoster, allergic reaction to drug, cellulitis, eczema, insect bites, impetigo, contact dermatitis, vasculitis. Discharge Plan Discharge Clinical Impression: Impetigo Patient Disposition: Home Condition: Stable Instructions: Antibiotic Form, Impetigo (ED) Additional Instructions: take antibiotic as prescribed until gone. Apply antibiotic ointment to bilateral nostrils using Q-tip. Follow-up with your primary care physician if not improving. Patient Language: Bulgarian Prescriptions: New cephalexin 500 mg capsule 500 mg PO Q8H 7 Days Qty: 21 0RF mupirocin [Centany] 2 % ointment 1 applic topical BID 10 Days Qty: 22 0RF Follow-up/Referrals: Rishabh,Kate Tinoco APN [Primary Care Provider, Unknown] Time of Disposition: 09:29
== END 2025-03-26 09:30 | disposition home or self-care (01) ==
PROVIDERS: Emergency Provider Nurse Practitioner Family; PCP Nurse Practitioner Family
DX: L01.00 Impetigo, unspecified (principal); F17.290 Nicotine dependence, other tobacco product, uncomplicated
CPT/HCPCS: 99213; G0463